=== PATIENT | male | born 1960 | race Caucasian/White ===

== ENCOUNTER 2024-03-30 13:50 | Outpatient (CLI) | payer MEDICARE, BC ==
[2024-03-30 15:12] LABS: ALV-art Gradient 29.155 mmHg (0-20); Actual Bicarbonate (HCO3a) 27.3 mEq/L (22-28); Analyzer IN Cardio CS ER; Base Excess (BEa) 2.9 mEq/L (-2.0 to +3.0); CO2 Tension 41.1 mmHg (35.0-45.0); Calcium, Ionized (arterial) 1.13 mmol/L (1.12-1.30); Carboxyhemoglobin (COHb) 0.4 gm% (0.0-3.0); Hematocrit-ABG 47 % (42.0-52.0); O2 Tension (PaO2), arterial 69.2 mmHg (> 80.0); Puncture Site RRA
== END 2024-03-30 13:51 | disposition home or self-care (01) ==
LOC: CSHCP 13:50
PROVIDERS: ATTEND Internal Medicine
DX: R06.01 Orthopnea (principal); J98.4 Other disorders of lung
CPT/HCPCS: 82330; 82375; 82805; 82947; 83605; 94060; 94726; 94729; 94760